=== PATIENT | female | born 2000 | race Hispanic/Latino ===

== ENCOUNTER 2018-09-27 07:55 | Emergency (ER) | payer OTHER, SELFPAY ==
[2018-09-27 09:15] LABS: Urine Blood NEGATIVE (NEG); Urine Glucose NEGATIVE (NEG); Urine Protein NEGATIVE (NEG)
--- NOTE | 2018-09-27 09:21 | RAD REPORT ---
EXAM DESCRIPTION: RAD - Abdomen Acute Series - 09/27/2018 9:10 am CLINICAL HISTORY: Lower chest pain, abdominal pain COMPARISON: None. FINDINGS: Lungs are clear. Heart size and pulmonary vasculature are normal. No pleural effusion, pne umothorax or other acute cardiopulmonary process seen. Bowel gas pattern is nonspecific. No bowel obstruction, free air or other acute findings. No suspicio us calcifications. No acute bone finding. Patient has thoracolumbar scoliosis. IMPRESSION: Negative acute abdomen series for acute findings Thoracolumbar scoliosis
[2018-09-27 09:25] LABS: Absolute Lymphocytes (CBC) 1.6 K/uL (0.7-4.9); Basophils % 0.3 % (0-1.3); Eosinophils % 0.4 % (0-4.4); Hematocrit 42.5 % (36.0-45.0); MPV 11.6 fL (7.6-11.3); Monocytes % 7.8 % (3.3-12.3); RBC Red Blood Cell Count 4.78 M/uL (3.86-4.86)
[2018-09-27 09:32] LABS: Potassium 3.6 mmol/L (3.5-5.1)
--- NOTE | 2018-09-27 10:08 | EDPHYS ---
Physician Documentation [facility] Name: Dunia Wang Age: 18 yrs Sex: Female : 2000 Arrival Date: 09/27/2018 Time: 07:59 Bed 16 Private MD: ED Physician Paxton Vincent HPI: 09/27 10:01 This 18 yrs old Female presents to ER via Ambulatory with complaints of gs Abdominal Pain. 10:01 The patient presents with abdominal pain in the left upper quadrant. Onset: The gs symptoms/episode began/occurred 2 week(s) ago. The symptoms do not radiate. Associated signs and symptoms: Pertinent positives: blood in stools. The symptoms are described as crampy. Modifying factors: The symptoms are alleviated by nothing, the symptoms are aggravated by nothing. Severity of pain: At its worst the pain was moderate in the emergency department the pain has improved markedly. The patient has experienced similar episodes in the past, a few times. 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 - Social history:: Smoking status: Patient/guardian denies using tobacco, Patient/guardian denies using alcohol. - Ebola Screening: : Patient negative for fever greater than or equal to 101.5 degrees Fahrenheit, and additional compatible Ebola Virus Disease symptoms Patient denies exposure to infectious person Patient denies travel to an Ebola-affected area in the 21 days before illness onset. ROS: 10:01 All other systems are negative. gs Exam: 10:01 Head/Face: Normocephalic, atraumatic. Eyes: Pupils equal round and reactive to light, gs extra-ocular motions intact. Lids and lashes normal. Conjunctiva and sclera are non-icteric and not injected. Cornea within normal limits. Periorbital areas with no swelling, redness, or edema. ENT: Nares patent. No nasal discharge, no septal abnormalities noted. Tympanic membranes are normal and external auditory canals are clear. Oropharynx with no redness, swelling, or masses, exudates, or evidence of obstruction, uvula midline. Mucous membranes moist. Neck: Trachea midline, no thyromegaly or masses palpated, and no cervical lymphadenopathy. Supple, full range of motion without nuchal rigidity, or vertebral point tenderness. No Meningismus. Chest/axilla: Normal chest wall appearance and motion. Nontender with no deformity. No lesions are appreciated. Cardiovascular: Regular rate and rhythm with a normal S1 and S2. No gallops, murmurs, or rubs. Normal PMI, no JVD. No pulse deficits. Respiratory: Lungs have equal breath sounds bilaterally, clear to auscultation and percussion. No rales, rhonchi or wheezes noted. No increased work of breathing, no retractions or nasal flaring. Back: No spinal tenderness. No costovertebral tenderness. Full range of motion. Skin: Warm, dry with normal turgor. Normal color with no rashes, no lesions, and no evidence of cellulitis. MS/ Extremity: Pulses equal, no cyanosis. Neurovascular intact. Full, normal range of motion. Neuro: Awake and alert, GCS 15, oriented to person, place, time, and situation. Cranial nerves II-XII grossly intact. Motor strength 5/5 in all extremities. Sensory grossly intact. Cerebellar exam normal. Normal gait. 10:01 Constitutional: The patient appears alert, awake. 10:01 Abdomen/GI: Palpation: mild abdominal tenderness, in the left upper quadrant, rebound tenderness, is not appreciated, Rectal exam: Stool: grossly bloody, maroon, the exam is chaperoned by an heat treat technician. Vital Signs: 08:08 BP 109 / 67; Pulse 72; Resp 18; Temp 98.9(O); Pulse Ox 100% on R/A; Weight 51.71 kg; hj Height 5 ft. 2 in. (157.48 cm); Pain 7/10; 09:55 BP 111 / 52; Pulse 66; Resp 16; Pulse Ox 100% on R/A; la1 08:08 Body Mass Index 20.85 (51.71 kg, 157.48 cm) MDM: 08:26 Patient medically screened. 10:01 Differential diagnosis: GI Bleed, non-specific abd pain. Data reviewed: vital signs, gs nurses notes, lab test result(s), radiologic studies. 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 Response to treatment: the patient's symptoms have markedly improved after treatment. 09/27 08:21 Order name: Urine Dipstick--Ancillary (enter results) bd 09/27 08:24 Order name: Urine --Ancillary (enter results); Complete Time: 09:25 bd 09/27 08:11 Order name: Urine Dipstick-Ancillary (obtain specimen); Complete Time: 08:19 hj 09/27 08:27 Order name: Abdomen Acute Series XRAY; Complete Time: 09:25 09/27 08:49 Order name: CBC with Diff; Complete Time: 09:47 09/27 08:49 Order name: Basic Metabolic Panel; Complete Time: 09:47 09/27 08:11 Order name: Urine Test (obtain specimen); Complete Time: 08:18 Administered Medications: No medications were administered Disposition: 09/27/18 10:07 Discharged to Home. Impression: Upper abdominal pain, unspecified, Gastrointestinal hemorrhage, unspecified. - Condition is Stable. - Discharge Instructions: Abdominal Pain, Adult, Gastrointestinal Bleeding. - Work release form, Medication Reconciliation Form, Thank You Letter, Antibiotic Education, Prescription Opioid Use form. - Follow up: Private Physician; When: 2 - 3 days; Reason: Re-evaluation by your physician. Follow up: Thai Villafuerte MD; When: 2 - 3 days; Reason: Re-evaluation by your physician. Signatures: Dispatcher [employer] EDPA Tyrone Rendon RN RN la1 Won Escobar RN RN Paxton Vincent MD MD gs Corrections: (The following items were deleted from the chart) 10:07 10:07 09/27/2018 10:07 Discharged to Home. Impression: Upper abdominal pain, gs unspecified; Gastrointestinal hemorrhage, unspecified. Condition is Stable. Forms are Medication Reconciliation Form, Thank You Letter, Antibiotic Education, Prescription Opioid Use. Follow up: Private Physician; When: 2 - 3 days; Reason: Re-evaluation by your physician. 10:15 10:07 09/27/2018 10:07 Discharged to Home. Impression: Upper abdominal pain, la1 unspecified; Gastrointestinal hemorrhage, unspecified. Condition is Stable. Discharge Instructions: Abdominal Pain, Adult, Gastrointestinal Bleeding. Forms are Medication Reconciliation Form, Thank You Letter, Antibiotic Education, Prescription Opioid Use. Follow up: Private Physician; When: 2 - 3 days; Reason: Re-evaluation by your physician. Follow up: Thai Villafuerte; When: 2 - 3 days; Reason: Re-evaluation by your physician. gs
--- NOTE | 2018-09-27 10:08 | ER ---
Nurse's Notes [facility] Name: Dunia Wang Age: 18 yrs Sex: Female : 2000 Arrival Date: 09/27/2018 Time: 07:59 Bed 16 Private MD: Diagnosis: Upper abdominal pain, unspecified;Gastrointestinal hemorrhage, unspecified Presentation: 09/27 08:06 Presenting complaint: Patient states: for a couple of weeks, libby been having this pain hj on my L lower stomach that moves to my lower back; reports N/V yesterday; denies F/C; pain is 7/10; LMP- on control pills;. Transition of care: patient was not received from another setting of care. Onset of symptoms was September 27, 2018. Risk Assessment: Do you want to hurt yourself or someone else? Patient reports no desire to harm self or others. Initial Sepsis Screen: Does the patient meet any 2 criteria? No. Patient's initial sepsis screen is negative. Does the patient have a suspected source of infection? No. Patient's initial sepsis screen is negative. Care prior to arrival: None. 08:06 Method Of Arrival: Ambulatory 08:06 Acuity: CRISTINA 3 hj Triage Assessment: 08:09 General: Appears in no apparent distress. uncomfortable, Behavior is calm, cooperative, hj appropriate for age. Pain: Complains of pain in left lower quadrant Pain radiates to left low back. GI: Reports nausea, vomiting. 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 - Social history:: Smoking status: Patient/guardian denies using tobacco, Patient/guardian denies using alcohol. - Ebola Screening: : Patient negative for fever greater than or equal to 101.5 degrees Fahrenheit, and additional compatible Ebola Virus Disease symptoms Patient denies exposure to infectious person Patient denies travel to an Ebola-affected area in the 21 days before illness onset. Screenin:09 Abuse screen: Denies threats or abuse. Denies injuries from another. Nutritional hj screening: No deficits noted. Tuberculosis screening: No symptoms or risk factors identified. Fall Risk None identified. Assessment: 08:10 GI: Bowel sounds Abd is soft. hj 09:54 General: Appears in no apparent distress. Behavior is calm, cooperative. Pain: la1 Complains of pain in left lower quadrant. Neuro: Level of Consciousness is awake, alert, obeys commands, Oriented to person, place, time, situation. Vital Signs: 08:08 BP 109 / 67; Pulse 72; Resp 18; Temp 98.9(O); Pulse Ox 100% on R/A; Weight 51.71 kg; hj Height 5 ft. 2 in. (157.48 cm); Pain 7/10; 09:55 BP 111 / 52; Pulse 66; Resp 16; Pulse Ox 100% on R/A; la1 08:08 Body Mass Index 20.85 (51.71 kg, 157.48 cm) ED Course: 07:59 Patient arrived in ED. as 08:01 Paxton Vincent MD is Attending Physician. 08:06 Won Escobar, REX is Primary Nurse. hj 08:07 Triage completed. hj 08:10 Arm band placed on left wrist. hj 08:10 Patient has correct armband on for positive identification. Placed in gown. Bed in low hj position. Call light in reach. Side rails up X 1. Adult w/ patient. 08:18 Urine collected: clean catch specimen, clear, sediment noted. 3 08:29 Radiology exam delayed due to test not completed at this time. 09:08 Initial lab(s) drawn, by nd, sent to lab. Inserted saline lock: 20 gauge in left dh3 antecubital area, using aseptic technique. Blood collected. 09:11 Abdomen Acute Series XRAY In Process Unspecified. EDMS 10:07 Thai Villafuerte MD is Referral Physician. gs 10:15 No provider procedures requiring assistance completed. IV discontinued, intact, la1 bleeding controlled, No redness/swelling at site. Pressure dressing applied. Administered Medications: No medications were administered Outcome: 10:07 Discharge ordered by . gs 10:15 Discharged to home ambulatory. la1 10:15 Condition: stable 10:15 Discharge instructions given to patient, Instructed on discharge instructions, follow up and referral plans. medication usage, Demonstrated understanding of instructions, follow-up care, medications. 10:15 Patient left the ED. la1 Signatures: Dispatcher [employer] Danisha Mcdonald Lee, RN RN la1 Nini Wade Henry, RN RN Katharina Machado 3 Paxton Vincent MD MD
== END 2018-09-27 10:15 | disposition home or self-care (01) ==
LOC: ER 07:55
DX: R10.12 Left upper quadrant pain (principal); K92.2 Gastrointestinal hemorrhage, unspecified
CPT/HCPCS: 36415; 74022; 80048; 81003; 81025; 85025; 99283

== ENCOUNTER 2020-10-29 14:00 | Emergency (ER) | payer SELFPAY ==
[2020-10-29] MEDS ORDERED: IBUPROFEN 400 MG TAB ONE (15:14)
--- NOTE | 2020-10-29 15:38 | RAD REPORT ---
EXAM DESCRIPTION: RAD - Chest Single View - 10/29/2020 3:23 pm CLINICAL HISTORY: COUGH COMPARISON: Abdomen Acute Series dated 09/27/2018 FINDINGS: New patchy airspace disease left lung base. The heart size is within normal limits.No acut e osseous abnormality. No significant pleural effusions or pneumothorax. IMPRESSION: Patchy airspace disease in the left lung base concerning for pneumonia.
--- NOTE | 2020-10-29 18:28 | EDPHYS ---
Physician Documentation [facility] Name: Dunia Wang Age: 20 yrs Sex: Female : 2000 Arrival Date: 10/29/2020 Time: 14:04 Bed 14 Private MD: ED Physician Ganesh Alexander HPI: 10/29 18:26 This 20 yrs old Female presents to ER via Ambulatory with complaints of Cough, kb Breathing Difficulty, COVID+. 18:26 The patient or guardian reports cough, that is intermittent, described as moderate, flu kb symptoms, low-grade fever. Onset: The symptoms/episode began/occurred 1 week(s) ago. Severity of symptoms: At their worst the symptoms were mild, moderate, in the emergency department the symptoms are unchanged. Modifying factors: The symptoms are alleviated by nothing, the symptoms are aggravated by nothing. Associated signs and symptoms: Pertinent positives: fever, Pertinent negatives: chest pain, diarrhea, ear ache, nausea, rhinorrhea, sore throat, vomiting. The patient has not experienced similar symptoms in the past. The patient has not recently seen a physician. Pt states she tested positive for covid last week. States she is still having fever and a cough so her sister wanted her to come in for evaluation. 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 - Social history:: Smoking status: Patient denies any tobacco usage or history of. ROS: 18:24 Abdomen/GI: Negative for abdominal pain, nausea, vomiting, diarrhea, and constipation. kb 18:24 Constitutional: Positive for fatigue, fever, malaise, Negative for body aches, chills, poor PO intake, weight loss. 18:24 Respiratory: Positive for cough, Negative for dyspnea on exertion, hemoptysis, orthopnea, pleurisy, shortness of breath, sputum production, wheezing. 18:24 All other systems are negative. Exam: 18:25 Constitutional: This is a well developed, well nourished patient who is awake, alert, kb and in no acute distress. Head/Face: Normocephalic, atraumatic. ENT: Moist Mucous membranes Cardiovascular: Regular rate and rhythm with a normal S1 and S2. No gallops, murmurs, or rubs. No pulse deficits. Respiratory: Respirations even and unlabored. No increased work of breathing, no retractions or nasal flaring. Skin: Warm, dry with normal turgor. Normal color. MS/ Extremity: Pulses equal, no cyanosis. Neurovascular intact. Full, normal range of motion. Neuro: Awake and alert, GCS 15, oriented to person, place, time, and situation. Moves all extremities. Normal gait. Psych: Awake, alert, with orientation to person, place and time. Behavior, mood, and affect are within normal limits. Vital Signs: 14:45 BP 114 / 72; Pulse 126; Resp 19; Temp 102.3; Pulse Ox 97% ; Weight 54.43 kg; Height 5 jl7 ft. 2 in. (157.48 cm); 18:15 BP 108 / 89; Pulse 99; Resp 15; Temp 99; Pulse Ox 96% ; hb 14:45 Body Mass Index 21.95 (54.43 kg, 157.48 cm) jl7 MDM: 18:15 Patient medically screened. kb 18:25 Data reviewed: vital signs, nurses notes. Data interpreted: Pulse oximetry: on room air kb is 100 %. Interpretation: normal. Counseling: I had a detailed discussion with the patient and/or guardian regarding: the historical points, exam findings, and any diagnostic results supporting the discharge/admit diagnosis, radiology results, the need for outpatient follow up, a family practitioner, to return to the emergency department if symptoms worsen or persist or if there are any questions or concerns that arise at home. 10/29 14:53 Order name: XRAY Chest (1 view); Complete Time: 18:15 jl7 Administered Medications: 14:53 Drug: Motrin (ibuprofen) 800 mg Route: PO; jl7 18:18 Follow up: Response: No adverse reaction; Temperature is decreased hb 18:51 Drug: Zithromax (azithromycin) 500 mg Route: PO; hb 18:51 Follow up: Response: Medication administered at discharge. hb Disposition: 18:59 Co-signature as Attending Physician, Ganesh Alexander I agree with the assessment and plan sp3 of care. Disposition Summary: 08/17/21 18:27 Discharge Ordered Location: Home kb Condition: Stable kb Diagnosis - Pneumonia, unspecified organism kb Followup: kb - With: Emergency Department - When: As needed - Reason: Worsening of condition Followup: kb - With: Private Physician - When: 2 - 3 days - Reason: Recheck today's complaints, Continuance of care, Re-evaluation by your physician Discharge Instructions: - Discharge Summary Sheet kb - Community-Acquired Pneumonia, Adult, [id number] kb - COVID-19 kb Forms: - Medication Reconciliation Form kb - Thank You Letter kb - Antibiotic Education kb - Prescription Opioid Use kb Prescriptions: - Zithromax 500 mg Oral Tablet - take 1 tablet by ORAL route once daily for 5 days; 5 tablet; Refills: 0, kb Product Selection Permitted Signatures: Dispatcher [employer] EDMS oJsey Leon, ELIZABETH GILL-Stephanie Adams, RN RN Ada Griffiths RN RN jl7 Ganesh Alexander sp3
--- NOTE | 2020-10-29 18:28 | ER ---
Nurse's Notes [facility] Name: Dunia Wang Age: 20 yrs Sex: Female : 2000 Arrival Date: 10/29/2020 Time: 14:04 Bed 14 Private MD: Diagnosis: Pneumonia, unspecified organism Presentation: 10/29 14:45 Chief complaint: Patient states: COVID + since 10-23-20, increased cough and shortness jl7 of breath and fever wont stay down, last took Tylenol at 0940 this morning. Coronavirus screen: Client denies travel out of the [place] in the last 14 days. cough unrelated to allergies, fever, shortness of breath, Client presents with at least one sign or symptom that may indicate coronavirus-19. Standard/surgical mask placed on the client. Provider contacted for isolation considerations. Client reports previous positive COVID test result. Date of collection: October 20, 2020. Ebola Screen: No symptoms or risks identified at this time. Initial Sepsis Screen: Does the patient meet any 2 criteria? Temp <36.0*C (96.8*F)) or > 38.3*C (100.9*F). HR > 90 bpm. Does the patient have a suspected source of infection? No. Patient's initial sepsis screen is negative. Risk Assessment: Do you want to hurt yourself or someone else? Patient reports no desire to harm self or others. Onset of symptoms was October 18, 2020. 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 - Social history:: Smoking status: Patient denies any tobacco usage or history of. Screenin:18 Abuse screen: Denies threats or abuse. Denies injuries from another. Nutritional hb screening: No deficits noted. Tuberculosis screening: No symptoms or risk factors identified. Fall Risk None identified. Assessment: 18:17 General: Appears in no apparent distress. Behavior is calm, cooperative. Pain: Denies hb pain. Neuro: Level of Consciousness is awake, alert, obeys commands, Oriented to person, place, time, situation. Cardiovascular: Patient's skin is warm and dry. Rhythm is sinus tachycardia. Respiratory: Respiratory effort is even, unlabored, Respiratory pattern is regular, symmetrical. GI: No signs and/or symptoms were reported involving the gastrointestinal system. : No signs and/or symptoms were reported regarding the genitourinary system. EENT: No signs and/or symptoms were reported regarding the EENT system. Derm: Skin is pink, warm \T\ dry. Musculoskeletal: No signs and/or symptoms reported regarding the musculoskeletal system. Vital Signs: 14:45 BP 114 / 72; Pulse 126; Resp 19; Temp 102.3; Pulse Ox 97% ; Weight 54.43 kg; Height 5 jl7 ft. 2 in. (157.48 cm); 18:15 BP 108 / 89; Pulse 99; Resp 15; Temp 99; Pulse Ox 96% ; hb 14:45 Body Mass Index 21.95 (54.43 kg, 157.48 cm) jl7 ED Course: 14:04 Patient arrived in ED. mr 14:48 Triage completed. jl7 14:48 Arm band placed on right wrist. Patient placed in waiting room, Patient notified of jl7 wait time. 15:23 XRAY Chest (1 view) In Process Unspecified. EDMS 18:15 Josey Leon FNP-C is PHCP. kb 18:15 Ganesh Alexander is Attending Physician. kb 18:15 Stephanie Sarmiento, RN is Primary Nurse. hb 18:18 Patient has correct armband on for positive identification. Bed in low position. Call hb light in reach. 18:52 No provider procedures requiring assistance completed. Patient did not have IV access hb during this emergency room visit. Administered Medications: 14:53 Drug: Motrin (ibuprofen) 800 mg Route: PO; jl7 18:18 Follow up: Response: No adverse reaction; Temperature is decreased hb 18:51 Drug: Zithromax (azithromycin) 500 mg Route: PO; hb 18:51 Follow up: Response: Medication administered at discharge. hb Outcome: 18:27 Discharge ordered by . kb 18:52 Discharged to home ambulatory. hb 18:52 Condition: stable 18:52 Discharge instructions given to patient, Instructed on discharge instructions, follow up and referral plans. medication usage, Demonstrated understanding of instructions, follow-up care, medications, Prescriptions given X 1. 18:53 Patient left the ED. hb Signatures: Dispatcher [employer] EDJosey Fuller, ELIZABETH GILL-Bekah Khan mr SarmientoStephanie, RN RN hb Ada Griffiths RN RN jl7 Corrections: (The following items were deleted from the chart) 18:18 18:15 Pulse 99bpm; Resp 15bpm; Pulse Ox 96%; Temp 99F; hb hb
[2020-10-29] MEDS ORDERED: AZITHROMYCIN 250 MG TAB ONE (19:09)
[2020-10-29 19:37] VITALS: BP 108/89; TEMP 99; O2SAT 96
== END 2020-10-29 18:53 | disposition home or self-care (01) ==
LOC: ER 14:00
DX: J18.9 Pneumonia, unspecified organism (principal)
CPT/HCPCS: 71045; 99284